=== PATIENT | female | born 1955 | race Caucasian/White ===

== ENCOUNTER → 2024-06-15 | Outpatient (CLI) | payer OTHER ==
[2024-06-15 15:02] LABS: Urine Bacteria None Seen /hpf (None Seen)
[2024-06-15 15:09] LABS: Basophils # (auto) 0.1 10 ^3/uL (0-0.2); Basophils % (auto) 1.1 % (0.0-2.0); Eosinophils # (auto) 0.1 10 ^3/uL (0-0.8); Eosinophils % (auto) 1.5 % (0.0-7.0); Hematocrit 43.5 % (36.0-46.0); Hemoglobin 14.4 g/dL (12.2-16.2); Lymphocytes # (auto) 3.9 10 ^3/uL (0.4-5.4); Lymphocytes % (auto) 50.8 % (10.0-50.0); Mean Corpuscular Hemoglobin 30.4 pg (28.0-32.0); Mean Corpuscular Hgb Conc. 33.1 g/dL (32.0-36.0); Mean Corpuscular Volume 91.9 fL (80.0-100.0); Monocytes # (auto) 0.7 10 ^3/uL (0-1.3); Monocytes % (auto) 8.9 % (0.0-12.0); Neutrophils # (auto) 2.9 10 ^3/uL (1.6-8.6); Neutrophils % (auto) 37.7 % (37.0-80.0); Nucleated Red Blood Cells % 0.1 %; Platelet Count (auto) 319 10^3/uL (140-450); Red Blood Cells 4.73 10^6/uL (4.0-5.20); Red Cell Distribution Width 12.8 % (11.8-14.3); White Blood Cell 7.6 10^3/uL (4.4-10.8)
[2024-06-15 15:10] LABS: Urine Blood Negative /uL (Negative); Urine Clarity Clear (Clear); Urine Color Light-Yellow (Yellow); Urine Protein, UAD Negative (Negative); Urine Specific Gravity 1.014 (1.001-1.035); Urine Squamous Epithelial Cell FEW /hpf (<5); Urine Urobilinogen Normal (Negative); Urine WBC < 1 /HPF (0-5); Urine pH 6.5 (5.0-9.0)
[2024-06-15 15:42] LABS: Alanine Aminotransferase 12 U/L (7-40); Albumin 4.6 g/dL (3.2-4.8); Alkaline Phosphatase 102 U/L (46-116); Anion Gap 9 (5-15); BUN/Creatinine Ratio 22.2 (10.0-20.0); Blood Urea Nitrogen 16 mg/dL (9-23); Calcium 9.9 mg/dL (8.7-10.4); Carbon Dioxide 29 mmol/L (20-31); Chloride 103 mmol/L (98-107); Sodium 141 mmol/L (136-145); Total Protein 6.9 g/dL (5.7-8.2)
[2024-06-15 15:43] LABS: Bilirubin, Total 0.3 mg/dL (0.2-1.0); Cholesterol 196 mg/dL (< 200); HDL Cholesterol 44 mg/dL (40-59)
[2024-06-15 15:46] LABS: Aspartate Aminotransferase 11 U/L (13-40); Glucose 107 mg/dL (74-106); LDL Cholesterol 126 mg/dL (< 100); Triglycerides 195 mg/dL (< 150)
[2024-06-16 06:07] LABS: Baso (Absolute) 0.1 x10E3/uL (0.0-0.2); Basos 1 % (Not Estab.); Eos 1 % (Not Estab.); Eos (Absolute) 0.1 x10E3/uL (0.0-0.4); Hematocrit 43.8 % (34.0-46.6); Hemoglobin 14.8 g/dL (11.1-15.9); Immature Granulocytes (Abs) 0 x10E3/uL (0.0-0.1); Lymphs 55 % (Not Estab.); Lymphs (Absolute) 4.6 x10E3/uL (0.7-3.1); MCH 31.1 pg (26.6-33.0); MCHC 33.8 g/dL (31.5-35.7); MCV 92 fL (79-97); Monocytes 9 % (Not Estab.); Monocytes (Absolute) 0.7 x10E3/uL (0.1-0.9); Neutrophils 34 % (Not Estab.); Neutrophils (Absolute) 2.8 x10E3/uL (1.4-7.0); Platelets 341 x10E3/uL (150-450); RBC 4.76 x10E6/uL (3.77-5.28); WBC 8.3 x10E3/uL (3.4-10.8)
[2024-06-16 12:07] LABS: % CD 8 Pos Lymph 42.4 % (12.0-35.5); Absolute CD 4 Helper 1794 /uL (359-1519); CD4/CD8 Ratio 0.92 (0.92-3.72)
[2024-06-16 13:07] LABS: Chlamydia Trachomatis, NAA Negative (Negative); Neisseria gonorrhoeae, NAA Negative (Negative)
== END | disposition home or self-care (01) ==
LOC: LAB 14:06
DX: Z11.3 Encounter for screening for infections with a predominantly sexual mode of transmission (principal); B20 Human immunodeficiency virus [HIV] disease; E78.5 Hyperlipidemia, unspecified
CPT/HCPCS: 36415; 80053; 80061; 81001; 85025; 86360

== ENCOUNTER 2024-12-07 11:16 | Outpatient (CLI) | payer OTHER, MEDICAID ==
[2024-12-07 12:01] LABS: Hematocrit 44.5 % (36.0-46.0); Hemoglobin 14.9 g/dL (12.2-16.2); Mean Corpuscular Hemoglobin 31.0 pg (28.0-32.0); Mean Corpuscular Volume 92.5 fL (80.0-100.0); Nucleated Red Blood Cells % 0.1 %
[2024-12-07 12:59] LABS: Alanine Aminotransferase 10 U/L (7-40); Albumin 4.5 g/dL (3.2-4.8); Alkaline Phosphatase 98 U/L (46-116); Anion Gap 10 (5-15); BUN/Creatinine Ratio 15.4 (10.0-20.0); Bilirubin, Total 0.3 mg/dL (0.2-1.0); Blood Urea Nitrogen 12 mg/dL (9-23); Calcium 9.4 mg/dL (8.7-10.4); Carbon Dioxide 28 mmol/L (20-31); Chloride 104 mmol/L (98-107); Glucose 92 mg/dL (74-106); Potassium 4.6 mmol/L (3.5-5.1); Sodium 142 mmol/L (136-145); Total Protein 7.1 g/dL (5.7-8.2)
[2024-12-08 05:08] LABS: Hematocrit 43.9 % (34.0-46.6); Hemoglobin 14.5 g/dL (11.1-15.9); MCH 30.6 pg (26.6-33.0); MCHC 33.0 g/dL (31.5-35.7); MCV 93 fL (79-97); RBC 4.74 x10E6/uL (3.77-5.28); RDW 12.5 % (11.7-15.4); WBC 14.3 x10E3/uL (3.4-10.8)
[2024-12-08 09:07] LABS: CD4/CD8 Ratio 1.18 (0.92-3.72)
== END 2024-12-07 17:00 | disposition home or self-care (01) ==
LOC: LAB 11:16
PROVIDERS: ATTEND Specialist
DX: J15.9 Unspecified bacterial pneumonia (principal); B20 Human immunodeficiency virus [HIV] disease
CPT/HCPCS: 36415; 80053; 85025; 86360; 87536